=== PATIENT | female | born 1990 | race African-American/Black ===

== ENCOUNTER 2016-12-06 22:33 | Emergency (ER) | payer MEDICAID ==
[2016-12-06] MEDS ORDERED: Sodium Chloride 0.9% 1,000 ML IV ONE (23:25)
[2016-12-06] MEDS ORDERED: diphenhydrAMINE 50 MG/ML SDV IVPUSH ONE (23:25)
[2016-12-06] MEDS ORDERED: Ondansetron 4 MG/2 ML SDV IV ONE (23:26)
[2016-12-06] MEDS ORDERED: Butorphanol 2 MG/ML SDV IVPUSH ONE (23:27)
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
[2016-12-07 00:41] VITALS: BP 118/72
== END 2016-12-07 00:38 | disposition home or self-care (01) ==
LOC: DL.ED 22:33
DX: J11.1 Influenza due to unidentified influenza virus with other respiratory manifestations (principal); G44.83 Primary cough headache
CPT/HCPCS: 96361; 96374; 96375; 99283; J0595; J1200; J2405; J7030

== ENCOUNTER 2016-12-07 12:59 | Emergency (ER) | payer MEDICAID ==
[2016-12-07 13:17] VITALS: BP 106/89
[2016-12-07] MEDS ORDERED: Sodium Chloride 0.9% 10 ML Syringe FLUSH PRN (13:24)
[2016-12-07] MEDS ORDERED: Sodium Chloride 0.9% 1,000 ML IV ONE (13:25)
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
[2016-12-07] MEDS ORDERED: diphenhydrAMINE 50 MG/ML SDV IVPUSH ONE (13:36)
[2016-12-07] MEDS ORDERED: Acetaminophen 325 MG Tab PO ONE (13:36)
[2016-12-07] MEDS ORDERED: methylPREDNISolone Sodium Succinate 125 MG/2 ML SDV IVPUSH ONE (13:36)
[2016-12-07] MEDS ORDERED: Metoclopramide 10 MG/2 ML SDV IVPUSH ONE (13:38)
[2016-12-07 14:02] LABS: CHLORIDE,CL 103 mmol/L (101-111); SODIUM,NA 136 mmol/L (135-145)
[2016-12-07] MEDS ORDERED: Ondansetron 4 MG/2 ML SDV IV ONE (15:10)
[2016-12-07] MEDS ORDERED: cefTRIAXone 1 GM in Sodium Chloride 0.9% 50 ML IV ONE (15:10)
[2016-12-07] MEDS ORDERED: Azithromycin 250 MG Tab PO ONE (15:10)
== END 2016-12-07 14:05 | disposition home or self-care (01) ==
LOC: DL.ED 12:59
DX: J11.1 Influenza due to unidentified influenza virus with other respiratory manifestations (principal); N76.0 Acute vaginitis
CPT/HCPCS: 36415; 80053; 80305; 81001; 81025; 85025; 86140; 87081; 87086; 87430; 87491; 87591; 96361; 96365; 96375; 99284; A9270; J0696; J1200; J2405; J2765; J2930; J7030; J7050

== ENCOUNTER 2017-05-28 19:59 | Emergency (ER) | payer MEDICAID ==
[2017-05-28 20:17] VITALS: BP 118/69
--- NOTE | 2017-05-28 21:24 | EDM.PDOC ---
ED HPI GENERAL MEDICAL PROBLEM - General Chief Complaint: Chest Pain Time Seen by Provider: 05/28/17 20:05 Source of Information: Reports: Patient History Limitations: Reports: No Limitations - History of Present Illness INITIAL COMMENTS - FREE TEXT/NARRATIVE: patient presnts with complaint of right sided chest pain radiating to neck noted started after using new fragrance in "essential oil" infuser. Denies difficulty breathing. No cough. 11 weeks . Also low back pain ongoing with , has discussed with OB. and was told to use warm pack to back. No cramping or spotting. No urinary complaints. - Related Data Allergies Allergy/AdvReac Type Severity Reaction Status Date / Time No Known Allergies Allergy Verified 05/28/17 20:20 Home Meds: Home Meds . 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 Musculoskeletal History: Reports: None Neurological History: Reports: Migraines Psychiatric History: Reports: None Endocrine/Metabolic History: Reports: None Hematologic History: Reports: None Immunologic History: Reports: None Oncologic (Cancer) History: Reports: None Dermatologic History: Reports: None - Infectious Disease History Infectious Disease History: Reports: None - Past Surgical History Head Surgeries/Procedures: Reports: None Social & Family History - Family History Family Medical History: Noncontributory - Tobacco Use Smoking Status *Q: Former Smoker Used Tobacco, but Quit: Yes Month Tobacco Last Used: sep Second Hand Smoke Exposure: No - Caffeine Use Caffeine Use: Reports: Tea - Recreational Drug Use Recreational Drug Use: No - Living Situation & Occupation Living situation: Reports: , with Family ED ROS GENERAL - Review of Systems Review Of Systems: See Below Constitutional: Reports: No Symptoms HEENT: Reports: No Symptoms Respiratory: Reports: No Symptoms, Cough Cardiovascular: Reports: Chest Pain GI/Abdominal: Reports: No Symptoms : Reports: No Symptoms, Other (11 weeks ) Musculoskeletal: Reports: Back Pain Skin: Reports: No Symptoms Neurological: Reports: No Symptoms Psychiatric: Reports: No Symptoms Hematologic/Lymphatic: Reports: No Symptoms Immunologic: Reports: No Symptoms ED EXAM, GENERAL - Physical Exam Exam: See Below Exam Limited By: No Limitations General Appearance: Alert, No Apparent Distress Ears: Normal External Exam Ear Exam: Bilateral Ear: Auricle Normal, Canal Normal, TM normal Nose: Normal Inspection, Normal Mucosa Throat/Mouth: Normal Inspection, Normal Lips Head: Atraumatic, Normocephalic Neck: Normal Inspection, Full Range of Motion, Lymphadenopathy (R) (right upper anterior cervical node) Respiratory/Chest: No Respiratory Distress, Lungs Clear, Normal Breath Sounds, Other (mild right upper chest wall discomfort with palpation) Cardiovascular: Normal Peripheral Pulses, Regular Rate, Rhythm (Female) Exam: Heart Tones (unable to detect with doppler, good placenta flow noted by OB RN) Back Exam: Normal Inspection, Full Range of Motion, Paraspinal Tenderness, Other (sacral discomfort, no change with palpation or omvement). No: CVA Tenderness (L), CVA Tenderness (R) Extremities: Normal Inspection, Normal Range of Motion, No Pedal Edema Neurological: Alert, Oriented, Normal Cognition Psychiatric: Normal Affect, Anxious (mild) Skin Exam: Warm, Dry, Intact, Normal Color Course - Vital Signs Last Recorded V/S: Last Vital Signs Temp 99.6 F 05/28/17 19:50 Pulse 82 05/28/17 19:50 Resp 16 05/28/17 19:50 BP 118/69 05/28/17 19:50 Pulse Ox 100 05/28/17 19:50 - Orders/Labs/Meds Labs: Laboratory Tests 05/28/17 Range/Units 20:57 Urine Color Yellow (YELLOW) Urine Appearance Slightly cloudy (CLEAR) Urine pH 6.0 (5.0-9.0) Ur Specific [place] 1.025 (1.005-1.030) Urine Protein Negative (NEGATIVE) Urine Glucose (UA) Negative (NEGATIVE) Urine Ketones Negative (NEGATIVE) Urine Occult Blood Trace-intact H (NEGATIVE) Urine Nitrite Negative (NEGATIVE) Urine Bilirubin Negative (NEGATIVE) Urine Urobilinogen 0.2 (0.2-1.0) mg/dL Ur Leukocyte Esterase Negative (NEGATIVE) Urine RBC 5-10 H /HPF Urine WBC 0-5 (0-5/HPF) /HPF Ur Epithelial Cells Moderate H /HPF Urine Bacteria Few (0-FEW/HPF) /HPF Urine Mucus Few H /LPF Departure - Departure Time of Disposition: 21:19 Disposition: Home, Self-Care 01 Condition: Good Clinical Impression: First trimester , Back pain during , Right-sided chest wall pain - Discharge Information Instructions: Nonspecific Chest Pain, [id number] Referrals: Sergio Damon MD [Primary Care Provider] - Forms: ED Department Discharge Additional Instructions: increase fluids follow up wt primary care later this week if not improving, urgent follow up if any breathing difficulty
== END 2017-05-28 21:26 | disposition home or self-care (01) ==
LOC: DL.ED 19:59 → EDSTATUS 20:09 → DL.ED 21:26
DX: O99.89 Other specified diseases and conditions complicating pregnancy, childbirth and the puerperium (principal); M54.5 Low back pain; R07.89 Other chest pain; G43.909 Migraine, unspecified, not intractable, without status migrainosus; Z3A.11 11 weeks gestation of pregnancy; Z87.891 Personal history of nicotine dependence
CPT/HCPCS: 81001; 99284

== ENCOUNTER 2017-06-29 14:55 | Emergency (ER) | payer MEDICAID ==
[2017-06-29 17:35] VITALS: BP 111/62
[2017-06-29] MEDS ORDERED: Metoclopramide 10 MG/2 ML SDV IM ONE (19:23)
[2017-06-29] MEDS ORDERED: Ketorolac 30 MG/ML SDV IM ONE (19:23)
[2017-06-29] MEDS ORDERED: diphenhydrAMINE 50 MG/ML SDV IM ONE (19:25)
--- NOTE | 2017-06-29 19:30 | EDM.PDOC ---
ED HPI GENERAL MEDICAL PROBLEM - General Chief Complaint: Headache Stated Complaint: 4 MTHS PG, SEVERE HEADACHE, [id number] Time Seen by Provider: 06/29/17 19:25 Source of Information: Reports: Patient History Limitations: Reports: No Limitations - History of Present Illness INITIAL COMMENTS - FREE TEXT/NARRATIVE: gives long h/o headache problem, present one past week, didn't call PMD since thought will go away but not, now feels worse, nauseous but no vomiting. Headache Pain Score (Numeric/FACES): 8 - Related Data Allergies Allergy/AdvReac Type Severity Reaction Status Date / Time No Known Allergies Allergy Verified 06/29/17 16:26 Home Meds: Home Meds L.acidoph,Paracasei, B.lactis [Probiotic] 1 tab PO DAILY 06/29/17 [History] Pnv No.95/Ferrous Fum/Folic AC [ Multivitamin Tablet] 1 each PO DAILY [History] Past Medical History - Past Health History Medical/Surgical History: Denies Medical/Surgical History HEENT History: Reports: None Other HEENT History: rt ear infections (?) Cardiovascular History: Reports: None Respiratory History: Reports: None Gastrointestinal History: Reports: None Genitourinary History: Reports: None 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: , 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 Musculoskeletal History: Reports: None Neurological History: Reports: Migraines Psychiatric History: Reports: None Endocrine/Metabolic History: Reports: None Hematologic History: Reports: None Immunologic History: Reports: None Oncologic (Cancer) History: Reports: None Dermatologic History: Reports: None - Infectious Disease History Infectious Disease History: Reports: None - Past Surgical History Head Surgeries/Procedures: Reports: None Social & Family History - Family History Family Medical History: Noncontributory - Tobacco Use Smoking Status *Q: Former Smoker Used Tobacco, but Quit: Yes Month Tobacco Last Used: sep Second Hand Smoke Exposure: No - Caffeine Use Caffeine Use: Reports: Tea - Recreational Drug Use Recreational Drug Use: No - Living Situation & Occupation Living situation: Reports: , with Family ED ROS GENERAL - Review of Systems Review Of Systems: ROS reveals no pertinent complaints other than HPI. - Physical Exam Exam: See Below Exam Limited By: No Limitations General Appearance: Alert, WD/WN, Mild Distress, Other (discomfort) Eye Exam: Bilateral Eye: PERRL (pupils ER @ 4mm) Ears: Hearing Grossly Normal Throat/Mouth: Normal Voice, No Airway Compromise Head Exam: Atraumatic Neck: Non-Tender, Full Range of Motion Respiratory/Chest: No Respiratory Distress Cardiovascular: Regular Rate, Rhythm GI/Abdominal: Soft, Non-Tender Neuro Exam (Abbreviated): Alert, Oriented, Normal Cognition, Normal Gait, No Motor/Sensory Deficits Psychiatric: Tearful Skin Exam: Warm, Dry, Normal Color Course - Vital Signs Last Recorded V/S: Last Vital Signs Temp 36.8 C 06/29/17 17:34 Pulse 84 06/29/17 17:34 Resp 20 06/29/17 17:34 BP 111/62 06/29/17 17:34 Pulse Ox 98 06/29/17 17:34 - Orders/Labs/Meds Orders: Active Orders 24 hr Category Date Time Status Ketorolac [Toradol] Med 06/29/17 19:23 Once 30 mg IM ONETIME ONE Metoclopramide [Reglan] Med 06/29/17 19:23 Once 10 mg IM ONETIME ONE diphenhydrAMINE [Benadryl] Med 06/29/17 19:25 Once 25 mg IM ONETIME ONE Medication Orders Ketorolac Tromethamine (Toradol) 30 mg IM ONETIME ONE Stop: 06/29/17 19:24 Metoclopramide HCl (Reglan) 10 mg IM ONETIME ONE Stop: 06/29/17 19:24 Meds: Medications Generic Name Dose Route Start Last Admin Trade Name Freq PRN Reason Stop Dose Admin Ketorolac Tromethamine 30 mg 06/29/17 19:23 Toradol IM 06/29/17 19:24 ONETIME ONE Metoclopramide HCl 10 mg 06/29/17 19:23 Reglan IM 06/29/17 19:24 ONETIME ONE Departure - Departure Time of Disposition: 19:28 Disposition: Home, Self-Care 01 Condition: Good Clinical Impression: Migraine - Discharge Information Instructions: Recurrent Migraine Headache, [id number] Additional Instructions: 1) rest 2) avoid solid foods next 24 hours 3) see Dr Tellez if no significant improvement by Saturday 4) return if feels worse or has any change or concern - My Orders Last 24 Hours: My Active Orders 06/29/17 19:23 Ketorolac [Toradol] 30 mg IM ONETIME ONE Metoclopramide [Reglan] 10 mg IM ONETIME ONE 06/29/17 19:25 diphenhydrAMINE [Benadryl] 25 mg IM ONETIME ONE - Assessment/Plan Last 24 Hours: My Active Orders 06/29/17 19:23 Ketorolac [Toradol] 30 mg IM ONETIME ONE Metoclopramide [Reglan] 10 mg IM ONETIME ONE 06/29/17 19:25 diphenhydrAMINE [Benadryl] 25 mg IM ONETIME ONE
== END 2017-06-29 19:58 | disposition home or self-care (01) ==
LOC: DL.ED 14:55
DX: O99.352 Diseases of the nervous system complicating pregnancy, second trimester (principal); G43.909 Migraine, unspecified, not intractable, without status migrainosus; Z87.891 Personal history of nicotine dependence; Z3A.16 16 weeks gestation of pregnancy
CPT/HCPCS: 96372; 99283; J1200; J1885; J2765

== ENCOUNTER 2017-12-15 00:42 | Inpatient (IN) | payer MEDICAID ==
[2017-12-15] MEDS ORDERED: Misoprostol 400 MCG (4 X 100 MCG TAB) RECTAL PRN (02:03)
[2017-12-15] MEDS ORDERED: Lidocaine 1% 30 ML SDV INJECT PRN (02:03)
[2017-12-15] MEDS ORDERED: Acetaminophen 325 MG Tab PO PRN (02:03)
[2017-12-15] MEDS ORDERED: Sodium Chloride 0.9% 10 ML Syringe FLUSH PRN (02:03)
[2017-12-15] MEDS ORDERED: Ondansetron 4 MG/2 ML SDV IV PRN (02:03)
[2017-12-15] MEDS ORDERED: Methylergonovine 0.2 MG/1 ML Amp IM PRN (02:03)
[2017-12-15] MEDS ORDERED: Tranexamic Acid 1,000 MG in Sodium Chloride 0.9% 100 ML IV PRN (02:03)
[2017-12-15] MEDS ORDERED: Carboprost Tromethamine 250 MCG/1 ML Amp IM PRN (02:03)
[2017-12-15] MEDS: Lactated Ringers 1,000 ML IV SCH ×3 (02:29→11:30)
[2017-12-15] MEDS ORDERED: Oxytocin/Normal Saline 30 UNIT/500 ML BAG IV SCH ×2 (04:30→10:00)
[2017-12-15] MEDS ORDERED: Nalbuphine 20 MG/1 ML Amp IM ONE (04:54)
[2017-12-15] MEDS ORDERED: Lactated Ringers 500 ML IV ONE (05:00)
[2017-12-15] MEDS ORDERED: fentaNYL 100 MCG/2 ML SDV ONE (06:28)
[2017-12-15] MEDS ORDERED: Bupivacaine 0.75%/D5W 2 ML Amp ONE (06:28)
[2017-12-15] MEDS ORDERED: EPINEPHrine 1 MG/ML SDV ONE (06:28)
--- NOTE | 2017-12-15 07:19 | PCM.PRNOTE ---
- Free Text/Narrative Note: Requested to provide analgesia to full term patient in severe pain. Upon entering the room, patient is supine in bed complaining of severe abdominal/ pelvic pain and discomfort. Procedure was discussed with patient including adverse outcomes and expectations. Pt consented to analgesia, SAB/IT. Pt placed into a sitting position. Landmarks for SAB/IT were identified and marked. Hands were washed and proper PPE was applied. Back was prepped with betadine x3. A sterile, transparent, fenestrated drape was applied. Excess betadine was removed. Using 3 mL of a 1% lidocaine solution, a skin wheel was placed at the L3/L4 interspace. A 24 ga (4 inch) Pencan spinal needle was inserted until positive for CSF. Negative for heme or paresthesias. Injected fentanyl 20 mcg, sufentanil 10 mcg, and 10 mg of a 0.75% bupivacaine solution with an epi wash. Pt was placed left lateral position for approximately 20 minutes. There were zero complications or adverse outcomes. Will continue to monitor.
--- NOTE | 2017-12-15 09:43 | DEL ---
DATE: 12/15/2017 Vasquez has progressed very nicely and did obtain intrathecal anesthesia. She was thought by the nurses to be occiput posterior for some time, and then she did spontaneously rotate to occiput anterior. She did proceed on to have a normal spontaneous vaginal delivery of a viable male who had scores of 9 and 9. The baby boy's weight is pending. There was some thin meconium noted at delivery and intrapartum, and he was suctioned as thoroughly as possible while on the perineum and after the delivery. A sample of cord blood was obtained, and the patient is O negative, unsensitized. We also did obtain stem cell collection at her request using her kit that she brought with her and adhering to the instructions meticulously. The placenta was delivered spontaneous and intact. Vaginal canal was closely inspected as mentioned above, and she did require suturing with 3-0 Vicryl of a second-degree perineal laceration. Estimated blood loss for the entire procedure was perhaps 250 mL. Needle, sponge, and instrument count were reported as correct. The patient has tolerated the procedure very well and remains in very stable condition in the unit. Please see my dictated admission history and physical. [facility] /[id number]
--- NOTE | 2017-12-15 09:49 | HP ---
HISTORY OF PRESENT ILLNESS: This patient is a 27-year-old, 5, para 3, ab 2 patient, who has recently had her delivery. Please see my delivery note. This H and P is done after the delivery. I have seen Vasquez early in the , and then she has also been followed by Dr. Tellez for most of the . Her course has been quite uncomplicated, although she did have several incidences of bacterial vaginosis during the . Also, she has had a recent dental abscess, that was managed by her local dentist apparently. She was currently at 40 weeks 1-day gestation today with an DOUGLAS yesterday on 12/14/2017. She did experience spontaneous rupture of membranes shortly after midnight, this morning on 12/15/2017. She did come to the hospital, and I was notified at about 2:00 a.m. today. She was possibly in very early labor at that time. Thin meconium was noted. The patient is O negative, unsensitized, and is negative for GBS status. She was having mild contractions this morning. It was decided if her contractions did not get closer and stronger or if she did not enter good active labor, then we would gently augment her with IV Pitocin, and this was actually commenced around 5:00 a.m. this morning. Initial cervical examination by the nurses was felt to be 4 cm near the external os, but 2 cm near the internal os, and she was 50% effaced with vertex presenting. PAST MEDICAL HISTORY: She denies any knowledge of heart, lung, liver, or kidney disease. ALLERGIES: None known. PAST SURGICAL HISTORY: Previous surgery, none. She does have past history of a mild traumatic brain injury. MEDICATIONS: At present, vitamins. FAMILY HISTORY: Noncontributory. Please see Dr. Tellez's EHR. SOCIAL HISTORY: She is a nonsmoker and had used marijuana very early on, but had stopped that when she found out she was . She is here with her significant other, Sean. PHYSICAL EXAMINATION: Vital Signs: Admission vital signs were within normal limits. Please see the EHR. Lungs: Clear to A. Heart: Regular rhythm without murmur. HEENT: The sclerae are nonicteric. I did not examine the oral cavity although the patient was in labor. Abdomen: Gravid and heart tones are category 1. Vaginal: Prior examinations of the cervix and vagina by the nurses felt that the patient was possibly occiput posterior and that she later did spontaneously rotate over to occiput anterior at delivery. Extremities: Negative. ASSESSMENT AND PLAN: The patient was completely dilated when I did my first vaginal exam, and the vertex was at +2 station. Please see our dictated delivery note. Our impression was that she would deliver nicely with a spontaneous vaginal delivery. We will obtain stem cell collection at her request, and the patient also wants to save the placenta after delivery. Please see admission orders. Her admission hemoglobin was 10.1. [facility] /[id number]
[2017-12-15] MEDS ORDERED: Acetaminophen 500 MG Tab PO PRN (10:02)
[2017-12-15] MEDS ORDERED: Zolpidem 5 MG Tab PO PRN (10:03)
[2017-12-15] MEDS ORDERED: Bisacodyl 10 MG Supp RECTAL PRN (10:04)
[2017-12-15] MEDS ORDERED: Benzocaine/Menthol 20%-0.5% Spray 56 GM Canister TOP PRN (10:35)
[2017-12-15] MEDS: Prenatal Multivitamin with Calcium/Folic Acid/Iron Tab PO SCH (11:57)
[2017-12-15] MEDS: Docusate Sodium 100 MG Cap PO SCH ×2 (11:57→20:35)
[2017-12-15] MEDS: Ferrous Sulfate 325 MG Tab PO SCH (11:57)
[2017-12-15] MEDS ORDERED: Ibuprofen 600 MG Tab PO SCH (13:00)
[2017-12-15] MEDS: Ibuprofen 800 MG Tab PO PRN (20:34)
[2017-12-16] MEDS: Ibuprofen 800 MG Tab PO PRN ×2 (05:50→14:06)
--- NOTE | 2017-12-16 09:11 | PN ---
DATE: 12/16/2017 SUBJECTIVE: Vasquez has had a fairly good night of rest. She has no complaints. Her lochia flow is within normal limits. No unusual perineal discomfort. She is in the process of establishing . OBJECTIVE: Her vital signs this morning are within normal limits, including afebrile. Her admission hemoglobin yesterday was 10.1 and hemoglobin is pending. Her extremities are negative. Uterine fundus is firm. ASSESSMENT: Stable course. PLAN: I understand that Dr. Tellez is going to proceed with circumcision today on Vasquez's baby boy. He had scores of 9 and 9 yesterday, and his weight was 8 pounds 11 ounces. He also was doing well today. Dr. Tellez and Vasquez can then decide whether or not discharge would happen tomorrow on Saturday, which would be day #2 or possibly later this p.m., which would be day #1. The patient did deliver at 0742 hours yesterday morning, on 12/15/2017. I also gave her my version of the discharge instructions today. I did ask her to do gradual progressive ambulation at home. She will keep in close contact with Dr. Tellez or any of us if any questions or problems whatsoever. hemoglobin is still pending. [facility] /[id number]
[2017-12-16] MEDS: Ferrous Sulfate 325 MG Tab PO SCH (09:46)
[2017-12-16] MEDS: Docusate Sodium 100 MG Cap PO SCH (09:46)
[2017-12-16] MEDS: Prenatal Multivitamin with Calcium/Folic Acid/Iron Tab PO SCH (09:46)
[2017-12-16] MEDS ORDERED: fentaNYL 100 MCG/2 ML SDV ITHECAL ONE (11:29)
[2017-12-16] MEDS ORDERED: EPINEPHrine 1 MG/ML SDV IV ONE (11:29)
--- NOTE | 2017-12-16 11:41 | PCM.DCSUM1 ---
Discharge Summary - Hospital Course Free Text/Narrative:: 27-year-old PPD #1 status post - Discharge Data Discharge Date: 12/16/17 Discharge Disposition: Home, Self-Care 01 Condition: Good - Patient Summary/Data Operative Procedure(s) Performed: None Complications: None Consults: None Labs Pending at D/C: None Recommended Follow-up Testing/Procedures: None Planned Operative Procedure(s) after DC: None Hospital Course: (Please see subjective section) - Patient Instructions Diet: Usual Diet as Tolerated Activity: As Tolerated, No Lifting Over 20 Pounds Driving: May Drive Today Showering/Bathing: May Shower Notify Provider of: Fever, Increased Pain, Nausea and/or Vomiting - Discharge Plan Home Medications: Home Meds L.acidoph,Paracasei, B.lactis [Probiotic] 1 tab PO DAILY 06/29/17 [History] Pnv No.95/Ferrous Fum/Folic AC [ Multivitamin Tablet] 1 each PO DAILY [History] Acetaminophen/Codeine [Tylenol with Codeine No.3 300MG/30MG] 1 tab PO Q4H PRN [History] Acetaminophen [Tylenol Extra Strength] 1,000 mg PO Q8H PRN tablet 12/16/17 [Rx] Docusate Sodium [Colace] 100 mg PO BID cap 12/16/17 [Rx] Ferrous Sulfate 325 mg PO DAILY tablet 12/16/17 [Rx] Ibuprofen [IJD: Ibuprofen] 800 mg PO Q8H PRN tablet 12/16/17 [Rx] Patient Handouts: Home Care Instructions for Mom, Vaginal Delivery, Care After Referrals: Matilde Tellez MD [Primary Care Provider] - (6-8 weeks for visit) - Discharge Summary/Plan Comment DC Time >30 min.: No Discharge Summary/Plan Comment: Discharge home today. Follow-up in 6-8 weeks for routine visit. Reasons to return sooner or present to the ED were viewed. Patient voiced her understanding, and all questions were answered. - General Info Date of Service: 12/16/17 Subjective Update: Doing well. No concerns. well--some trouble latching on the right. Voiding without difficulty. Has passed gas. Tolerating a general diet. No dizziness/lightheadedness with ambulation. No fevers or chills. Bleeding has decreased over the past 24 hours. No concerns per patient or per nursing. Functional Status: Reports: Pain Controlled, Tolerating Diet, Ambulating, Urinating. Denies: New Symptoms - Review of Systems General: Reports: No Symptoms HEENT: Reports: No Symptoms Pulmonary: Reports: No Symptoms Cardiovascular: Reports: No Symptoms Gastrointestinal: Reports: No Symptoms Genitourinary: Reports: No Symptoms Musculoskeletal: Reports: No Symptoms - Patient Data Vitals - Most Recent: Last Vital Signs Temp 36.6 C 12/15/17 20:00 Pulse 87 12/15/17 20:00 Resp 14 12/15/17 20:00 BP 107/60 12/15/17 20:00 Pulse Ox 100 12/15/17 20:00 Weight - Most Recent: 95.254 kg I&O - Last 24 hours: Intake & Output 12/15/17 12/16/17 12/16/17 22:59 06:59 14:59 Intake Total 500 500 Balance 500 500 Lab Results - Last 24 hrs: Laboratory Results - last 24 hr 12/15/17 Range/Units 02:20 Blood Type O NEGATIVE Gel Antibody Screen Positive Rhogam Indicated Yes, baby rh pos H Med Orders - Current: Current Medications Acetaminophen (Tylenol) 650 mg PO Q4H PRN PRN Reason: Pain (Mild 1-3) and fever Acetaminophen (Tylenol Extra Strength) 1,000 mg PO Q8H PRN PRN Reason: Pain (mild 1-3) Benzocaine/Menthol (Dermoplast Pain Relief [place]) 0 gm TOP ASDIRECTED PRN PRN Reason: PAIN Last Admin: 12/15/17 10:30 Dose: 1 spray Bisacodyl (Dulcolax) 10 mg RECTAL ASDIRECTED PRN PRN Reason: CONSTIPATION Carboprost Tromethamine (Hemabate Ds) 250 mcg IM ASDIRECTED PRN PRN Reason: HEMORRHAGE Docusate Sodium (Colace) 100 mg PO BID [facility] Last Admin: 12/16/17 09:46 Dose: 100 mg Ferrous Sulfate (Ferrous Sulfate) 325 mg PO DAILY [facility] Last Admin: 12/16/17 09:46 Dose: 325 mg Lactated Ringer's (Ringers, Lactated) 1,000 mls @ 125 mls/hr IV ASDIRECTED [facility] Last Admin: 12/15/17 11:30 Dose: 125 mls/hr Tranexamic Acid 1,000 mg/ (Sodium Chloride) 110 mls @ 660 mls/hr IV ONETIME PRN PRN Reason: Bleeding Oxytocin/Sodium Chloride (Pitocin In Ns 30 Unit/500 Ml) 30 unit in 500 mls @ 500 mls/hr IV TITRATE DARRYL PRN Reason: Protocol Ibuprofen (Motrin) 800 mg PO Q8H PRN PRN Reason: Pain Last Admin: 12/16/17 05:50 Dose: 800 mg Lidocaine HCl (Xylocaine-Mpf 1%) 10 ml INJECT ASDIRECTED PRN PRN Reason: Perineal Repair Methylergonovine Maleate (Methergine) 0.2 mg IM ASDIRECTED PRN PRN Reason: Hemorrhage Misoprostol (Cytotec) 800 mcg RECTAL ASDIRECTED PRN PRN Reason: Hemorrhage Ondansetron HCl (Zofran) 4 mg IV Q4H PRN PRN Reason: Nausea/Vomiting Last Admin: 12/15/17 06:03 Dose: 4 mg Prenat Multivit/[place]/Iron/Folic Ac ( Plus Iron) 1 each PO DAILY [facility] Last Admin: 12/16/17 09:46 Dose: 1 each Sodium Chloride (Saline Flush) 10 ml FLUSH ASDIRECTED PRN PRN Reason: Keep Vein Open Zolpidem Tartrate (Ambien) 10 mg PO BEDTIME PRN PRN Reason: INSOMNIA Discontinued Medications Bupivacaine HCl/Dextrose (Marcaine 0.75% Spinal) Confirm Administered Dose 2 ml .ROUTE .STK-MED ONE Stop: 12/15/17 06:29 Last Admin: 12/15/17 11:55 Dose: Not Given Epinephrine HCl (Adrenalin) Confirm Administered Dose 1 mg .ROUTE .STK-MED ONE Stop: 12/15/17 06:29 Last Admin: 12/15/17 11:55 Dose: Not Given Epinephrine HCl (Adrenalin) 0.1 mg IV .STK-MED ONE Stop: 12/16/17 11:30 Fentanyl (Sublimaze) Confirm Administered Dose 100 mcg .ROUTE .STK-MED ONE Stop: 12/15/17 06:29 Last Admin: 12/15/17 11:55 Dose: Not Given Fentanyl (Sublimaze) 20 mcg ITHECAL .STK-MED ONE Stop: 12/16/17 11:30 Lactated Ringer's (Ringers, Lactated) 500 mls @ 500 mls/hr IV .BOLUS ONE Stop: 12/15/17 05:59 Last Admin: 12/15/17 11:56 Dose: Not Given Oxytocin/Sodium Chloride (Pitocin In Ns 30 Unit/500 Ml) 30 unit in 500 mls @ 2 mls/hr IV TITRATE DARRYL; 2 MUNITS/MIN PRN Reason: Protocol Last Titration: 12/15/17 11:30 Dose: Infused Ibuprofen (Motrin) 600 mg PO QID DARRYL Last Admin: 12/15/17 15:25 Dose: Not Given Lidocaine HCl (Xylocaine-Mpf 1%) Confirm Administered Dose 5 ml .ROUTE .STK-MED ONE Stop: 12/15/17 06:29 Last Admin: 12/15/17 11:56 Dose: Not Given Nalbuphine HCl (Nubain) 20 mg IM ONETIME ONE Stop: 12/15/17 04:55 Last Admin: 12/15/17 05:15 Dose: 20 mg Sufentanil Citrate (Sufenta) Confirm Administered Dose 50 mcg .ROUTE .STK-MED ONE Stop: 12/15/17 06:29 Last Admin: 12/15/17 11:56 Dose: Not Given Sufentanil Citrate (Sufenta) 10 mcg ITHECAL .STK-MED ONE Stop: 12/16/17 11:30 - Exam General: Reports: Alert, Oriented HEENT: Reports: Pupils Reactive Lungs: Reports: Clear to Auscultation, Normal Respiratory Effort Cardiovascular: Reports: Regular Rate, Regular Rhythm, No Murmurs Extremities: No Pedal Edema Skin: Reports: Warm, Dry, Intact *Q Meaningful Use (DIS) - VTE *Q VTE Criteria *Q: - Stroke *Q Stroke Criteria *Q: - AMI *Q AMI Criteria *Q:
[2017-12-16 11:42] VITALS: BP 107/56
== END 2017-12-16 16:30 | disposition home or self-care (01) | DRG 775 ==
LOC: DL.OBCHECK 00:42 → DL.OB 02:00 → OBSVTOIN 07:42 → DL.OB 07:42
PROVIDERS: ADMIT Obstetrics & Gynecology; ATTEND Obstetrics & Gynecology
PROC: 10E0XZZ Delivery of Products of Conception, External Approach (ICD-10-PCS; principal; 2017-12-15)
PROC: 0KQM0ZZ Repair Perineum Muscle, Open Approach (ICD-10-PCS; 2017-12-15)
PROC: 00HU33Z Insertion of Infusion Device into Spinal Canal, Percutaneous Approach (ICD-10-PCS; 2017-12-15)
PROC: 3E0R3BZ Introduction of Anesthetic Agent into Spinal Canal, Percutaneous Approach (ICD-10-PCS; 2017-12-15)
DX: O70.1 Second degree perineal laceration during delivery (principal); Z37.0 Single live birth; Z3A.40 40 weeks gestation of pregnancy
CPT/HCPCS: 01967; 36415; 59025; 59300; 59409; 85027; 85461; 86850; 86870; 86900; 86901; A9270-GY; J0171; J2300; J2405; J2590; J2790; J3010; J7120

== ENCOUNTER 2017-12-17 22:46 | Emergency (ER) | payer MEDICAID ==
[2017-12-17 22:52] VITALS: BP 124/68
[2017-12-17 23:39] LABS: CHLORIDE,CL 101 mmol/L (101-111); SODIUM,NA 135 mmol/L (135-145)
--- NOTE | 2017-12-18 00:14 | EDM.PDOC ---
ED HPI GENERAL MEDICAL PROBLEM - General Chief Complaint: Lower Extremity Injury/Pain Stated Complaint: LEG SWELLING/TIGHTNESS [id number] Time Seen by Provider: 12/17/17 22:50 Source of Information: Reports: Patient History Limitations: Reports: No Limitations - History of Present Illness INITIAL COMMENTS - FREE TEXT/NARRATIVE: ED with complaint of right leg swelling and pain down mid thigh to ankle starting early priti. S/P vaginal delivery on 12/15/2017. Denies SOB, chest pain or history of blood clots. Family hx in grandmother. No fever or chills Right Lower Leg Pain Score (Numeric/FACES): 6 - Related Data Allergies Allergy/AdvReac Type Severity Reaction Status Date / Time No Known Allergies Allergy Verified 12/17/17 22:52 Home Meds: Home Meds Pnv No.95/Ferrous Fum/Folic AC [ Multivitamin Tablet] 1 each PO DAILY [History] Acetaminophen/Codeine [Tylenol with Codeine No.3 300MG/30MG] 1 tab PO Q4H PRN [History] Acetaminophen [Tylenol Extra Strength] 1,000 mg PO Q8H PRN tablet 12/16/17 [Rx] Docusate Sodium [Colace] 100 mg PO BID cap 12/16/17 [Rx] Ibuprofen [IJD: Ibuprofen] 800 mg PO Q8H PRN tablet 12/16/17 [Rx] Past Medical History - Past Health History Medical/Surgical History: Denies Medical/Surgical History HEENT History: Reports: Other (See Below) Other HEENT History: rt ear infections (?). 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 (See Below) Other OB/BYN History: recurrent bacterial vaginosis Musculoskeletal History: Reports: None Neurological History: Reports: Migraines Psychiatric History: Reports: None Endocrine/Metabolic History: Reports: None Hematologic History: Reports: None Immunologic History: Reports: None Oncologic (Cancer) History: Reports: None Dermatologic History: Reports: None - Infectious Disease History Infectious Disease History: Reports: None - Past Surgical History Head Surgeries/Procedures: Reports: None HEENT Surgical History: Reports: Other (See Below) Other HEENT Surgeries/Procedures: dental carries Social & Family History - Family History Family Medical History: Noncontributory - Tobacco Use Smoking Status *Q: Never Smoker Used Tobacco, but Quit: Yes Month/Year Tobacco Last Used: sep Second Hand Smoke Exposure: No - Caffeine Use Caffeine Use: Reports: None - Recreational Drug Use Recreational Drug Use: No - Living Situation & Occupation Living situation: Reports: , with Family Review of Systems - Review of Systems Review Of Systems: ROS reveals no pertinent complaints other than HPI. ED EXAM, GENERAL - Physical Exam Exam: See Below Exam Limited By: No Limitations General Appearance: Alert, No Apparent Distress Eye Exam: Bilateral Eye: EOMI Ears: Normal External Exam, Normal TMs Nose: Normal Inspection Throat/Mouth: Normal Inspection Head: Atraumatic, Normocephalic Neck: Normal Inspection, Full Range of Motion Respiratory/Chest: No Respiratory Distress, Lungs Clear, Normal Breath Sounds Cardiovascular: Normal Peripheral Pulses, Regular Rate, Rhythm GI/Abdominal: Normal Bowel Sounds, Soft Back Exam: Normal Inspection, Full Range of Motion Extremities: Normal Range of Motion, Ryan's Sign, Leg Pain, Other (ankle 28 cm bilaterally below knee left 39 right 42 above knee bilaterally 48cm). No: Pallor, Redness Neurological: Alert, Oriented, Normal Cognition Psychiatric: Normal Affect, Normal Mood Skin Exam: Warm, Dry, Intact, Normal Color Course - Vital Signs Last Recorded V/S: Last Vital Signs Temp 97.1 F 12/17/17 22:48 Pulse 99 12/17/17 22:48 Resp 18 12/17/17 22:48 BP 124/68 12/17/17 22:48 Pulse Ox 99 12/17/17 22:48 - Orders/Labs/Meds Orders: Active Orders 24 hr Category Date Time Status Venous Doppler Lwr Ext Lt [US] Urgent Exams 12/17/17 23:07 Stop Req Venous Doppler Lwr Ext Rt [US] Urgent Exams 12/17/17 23:55 Ordered Labs: Laboratory Tests 12/17/17 12/17/17 12/17/17 Range/Units 23:15 23:15 23:15 WBC 10.6 H (5.0-10.0) 10^3/uL RBC 3.27 L (4.2-5.4) 10^6/uL Hgb 9.9 L D (12.0-16.0) g/dL Hct 29.5 L (37.0-47.0) % MCV 90.2 (80-100) fL MCH 30.3 (27.0-34.0) pg MCHC 33.6 (33.0-35.0) g/dL Plt Count 195 (150-450) 10^3/uL Neut % (Auto) 57.3 (42.2-75.2) % Lymph % (Auto) 31.3 (20.5-50.1) % Hubbard % (Auto) 8.8 H (2-8) % Eos % (Auto) 2.1 (1.0-3.0) % Baso % (Auto) 0.5 (0.0-1.0) % PT 9.3 (9.0-12.0) SEC INR 0.9 (0.9-1.2) Sodium 135 (135-145) mmol/L Potassium 3.5 L (3.6-5.0) mmol/L Chloride 101 (101-111) mmol/L Carbon Dioxide 24.0 (21.0-31.0) mmol/L Anion Gap 13.5 BUN 6 L (7-18) mg/dL Creatinine 0.6 (0.6-1.3) mg/dL Est Cr Clr Drug Dosing 134.18 mL/min Estimated GFR (MDRD) > 60 BUN/Creatinine Ratio 10.00 Glucose 96 (74-105) mg/dL Calcium 8.7 (8.4-10.2) mg/dl Total Bilirubin 0.8 (0.2-1.0) mg/dL AST 41 (10-42) IU/L ALT 25 (10-60) IU/L Alkaline Phosphatase 114 (42-121) IU/L Total Protein 5.7 L (6.7-8.2) g/dl Albumin 2.6 L (3.2-5.5) g/dl Globulin 3.1 Albumin/Globulin Ratio 0.84 - Radiology Interpretation Free Text/Narrative:: Right venous doppler ultrasound negative Departure - Departure Time of Disposition: 00:08 Disposition: Home, Self-Care 01 Condition: Good Clinical Impression: Pain and swelling of right lower leg - Discharge Information Instructions: Peripheral Edema Referrals: Matilde Tellez MD [Primary Care Provider] - Forms: ED Department Discharge Additional Instructions: limit sodium intake elevate extremities above level of heart 30 minutes twice daily ambulate short distance at lest every hour follow up in clinic this week if continued swelling - My Orders Last 24 Hours: My Active Orders 12/17/17 23:07 Venous Doppler Lwr Ext Lt [US] Urgent 12/17/17 23:55 Venous Doppler Lwr Ext Rt [US] Urgent - Assessment/Plan Last 24 Hours: My Active Orders 12/17/17 23:07 Venous Doppler Lwr Ext Lt [US] Urgent 12/17/17 23:55 Venous Doppler Lwr Ext Rt [US] Urgent
== END 2017-12-18 00:14 | disposition home or self-care (01) ==
LOC: DL.ED 22:46
DX: O90.89 Other complications of the puerperium, not elsewhere classified (principal); M79.661 Pain in right lower leg; R22.41 Localized swelling, mass and lump, right lower limb; Z87.891 Personal history of nicotine dependence
CPT/HCPCS: 36415; 80053; 85025; 85610; 93971; 99284

== ENCOUNTER 2018-06-09 03:50 | Emergency (ER) | payer MEDICAID, OTHER ==
[2018-06-09 04:00] VITALS: BP 103/72
[2018-06-09] MEDS: Ibuprofen 600 MG Tab PO ONE (04:13)
[2018-06-09] MEDS: Amoxicillin 500 MG Cap PO ONE (04:13)
--- NOTE | 2018-06-09 04:29 | EDM.PDOC ---
ED HPI GENERAL MEDICAL PROBLEM - General Chief Complaint: ENT Problem Stated Complaint: MOUTH PAIN [id number] Time Seen by Provider: 06/09/18 04:00 Source of Information: Reports: Patient History Limitations: Reports: No Limitations - History of Present Illness INITIAL COMMENTS - FREE TEXT/NARRATIVE: c/o left lower jaw pain, worse with eating and drinking. Ache/ fullness type feeling. Dental appointment in scheduled end of June, On waiting list. No fever or chills. Left Lower Oral/Mouth Pain Score (Numeric/FACES): 8 - Related Data Allergies Allergy/AdvReac Type Severity Reaction Status Date / Time No Known Allergies Allergy Verified 12/17/17 22:52 Home Meds: Home Meds Pnv No.95/Ferrous Fum/Folic AC [ Multivitamin Tablet] 1 each PO DAILY [History] Acetaminophen/Codeine [Tylenol with Codeine No.3 300MG/30MG] 1 tab PO Q4H PRN [History] Acetaminophen [Tylenol Extra Strength] 1,000 mg PO Q8H PRN tablet 12/16/17 [Rx] Docusate Sodium [Colace] 100 mg PO BID cap 12/16/17 [Rx] Ibuprofen [IJD: Ibuprofen] 800 mg PO Q8H PRN tablet 12/16/17 [Rx] Past Medical History - Past Health History Medical/Surgical History: Denies Medical/Surgical History HEENT History: Reports: Other (See Below) Other HEENT History: rt ear infections (?). 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: recurrent bacterial vaginosis Musculoskeletal History: Reports: None Neurological History: Reports: Migraines Psychiatric History: Reports: None Endocrine/Metabolic History: Reports: None Hematologic History: Reports: None Immunologic History: Reports: None Oncologic (Cancer) History: Reports: None Dermatologic History: Reports: None - Infectious Disease History Infectious Disease History: Reports: None - Past Surgical History Head Surgeries/Procedures: Reports: None HEENT Surgical History: Reports: Other (See Below) Other HEENT Surgeries/Procedures: dental carries Social & Family History - Family History Family Medical History: Noncontributory - Tobacco Use Smoking Status *Q: Never Smoker - Caffeine Use Caffeine Use: Reports: None - Recreational Drug Use Recreational Drug Use: No - Living Situation & Occupation Living situation: Reports: , with Family ED ROS ENT - Review of Systems Review Of Systems: ROS reveals no pertinent complaints other than HPI. ED EXAM, ENT - Physical Exam Exam: See Below Exam Limited By: No Limitations General Appearance: Alert, Mild Distress Eye Exam: Bilateral Eye: EOMI, PERRL Ears: Normal External Exam, Hearing Grossly Normal Nose: Normal Inspection Mouth/Throat: Normal Gums (mild redness left lower llateral), Dental Pain (left lower posterior lateral), Gum Swelling Head: Atraumatic, Normocephalic Neck: Normal Inspection, Full Range of Motion. No: Lymphadenopathy (L), Lymphadenopathy (R) Respiratory/Chest: No Respiratory Distress, Lungs Clear Cardiovascular: Normal Peripheral Pulses, Regular Rate, Rhythm Extremities: Normal Inspection Neurological: Alert, Oriented, Normal Cognition Psychiatric: Normal Affect, Normal Mood Skin: Warm, Dry, Intact, Normal Color Course - Vital Signs Last Recorded V/S: Last Vital Signs Temp 97.6 F 06/09/18 03:55 Pulse 68 06/09/18 03:55 Resp 14 06/09/18 03:55 BP 103/72 06/09/18 03:55 Pulse Ox 100 06/09/18 03:55 - Orders/Labs/Meds Meds: Medications Discontinued Medications Generic Name Dose Route Start Last Admin Trade Name Freq PRN Reason Stop Dose Admin Amoxicillin 500 mg 06/09/18 04:06 Amoxil PO 06/09/18 04:07 ONETIME ONE Ibuprofen 600 mg 06/09/18 04:05 Motrin PO 06/09/18 04:06 ONETIME ONE Departure - Departure Time of Disposition: 04:11 Disposition: Home, Self-Care 01 Condition: Good Clinical Impression: Pain, dental - Discharge Information *PRESCRIPTION DRUG MONITORING PROGRAM REVIEWED*: No Instructions: Dental Abscess Additional Instructions: alternate tylenol and ibuprofen for discomfort chew on opposite side amoxicillin 500mg one three times daily follow up with dentist
== END 2018-06-09 04:17 | disposition home or self-care (01) ==
LOC: DL.ED 03:50
DX: K08.89 Other specified disorders of teeth and supporting structures (principal); Z79.899 Other long term (current) drug therapy
CPT/HCPCS: 99282; 99283; A9270-GY